=== PATIENT | male | born 1990 | race Two or more races ===

== ENCOUNTER 2017-06-23 02:47 | Emergency (ER) | payer BC ==
[2017-06-23 02:52] VITALS: RESP 18
[2017-06-23] MEDS ORDERED: FLUORESCEIN SODIUM 1 MG STRIP OP ONE (04:34)
[2017-06-23] MEDS ORDERED: PROPARACAINE 0.5% 15 ML OPHT DROP ONE (04:35)
--- NOTE | 2017-06-23 04:38 | EDPHY ---
H & P Stated Complaint: Left eye lac Time Seen by Provider: 06/23/17 03:21 HPI/ROS: HPI The patient presents with left eye injury which occurred a few hours prior to arrival. He accidentally walked into a wall and sustained a laceration to his left eyebrow. He also hit his eye in the process. He has increased tearing of his eye as well as diffuse redness with no changes in the vision. His eye is painful, it is a burning pain, worse with light and moderate in severity REVIEW OF SYSTEMS Constitutional: No fever, no chills. Eyes: No discharge. ENT: No sore throat. Cardiovascular: No chest pain, no palpitations. Respiratory: No cough, no shortness of breath. Gastrointestinal: No abdominal pain, no vomiting. Genitourinary: No hematuria. Musculoskeletal: No back pain. Skin: No rashes. Neurological: No headache. PMHx: Healthy PHYSICAL General Appearance: Alert, no distress Eyes: Pupils equal and round no pallor or injection EYE EXAM left Visual Acuity: noted from Nurse's notes. Pupils: Pupil is asymmetric with trabeculation is a present on the temporal aspect Skin: Periorbital ecchymoses are present no proptosis, no vesicles Conjunctivae: Diffusely injected, no discharge Cornea: exam with fluoroscein shows no uptake Anterior chamber:normal, no hyphema or hypopyon ENT, Mouth: Mucous membranes moist Respiratory: There are no retractions, lungs are clear to auscultation Cardiovascular: Regular rate and rhythm Gastrointestinal: Abdomen is soft and non-tender, no masses, bowel sounds normal Neurological: A&O, moves all extremities Skin: Left eyebrow at the nasal aspect has a v-shaped 2 cm laceration which is slightly gaping Musculoskeletal: Neck is supple non tender Extremities: symmetrical, full range of motion Psychiatric: Patient is oriented X 3, there is no agitation Source: Patient Exam Limitations: No limitations - Personal History Current Tetanus/Diphtheria Vaccine: Yes - Medical/Surgical History Hx Asthma: No Hx Chronic Respiratory Disease: No Hx Diabetes: No Hx Cardiac Disease: No Hx Renal Disease: No Hx Cirrhosis: No Hx Alcoholism: No Hx HIV/AIDS: No Hx Splenectomy or Spleen Trauma: No Other PMH: denies - Social History Smoking Status: Current every day smoker Constitutional: Initial Vital Signs Temperature (C) 36.9 C 06/23/17 02:49 Heart Rate 98 02/25/18 02:49 Respiratory Rate 18 06/23/17 02:49 Blood Pressure 123/82 H 06/23/17 02:49 O2 Sat (%) 92 06/23/17 02:49 O2 Delivery Mode Room Air Allergies/Adverse Reactions: No Known Allergies Allergy (Unverified 06/23/17 02:52) Home Medications: Medication Instructions Recorded Tobramycin/Dexamethasone [Tobradex 5 ml OP QID #1 drops.susp 06/23/17 Eye Drops] Medical Decision Making Procedures: LACERATION REPAIR Procedure: Laceration repair. Verbal consent was obtained from the patient. The v-shaped 2 cm laceration on the left eyebrow was anesthetized using lidocaine with epinephrine. The wound was scrubbed, draped and explored to its base with a gloved finger. There were no deep structures involved. No tendon injury was identified. . The wound was repaired with 3 simple interrupted sutures of 5-0 Prolene. The wound repair was complex. The procedure was performed by myself. Differential Diagnosis: 26-year-old male, healthy, presents after running into a wall, sustaining eyebrow laceration as well as injury to his eye. In the emergency department, eyebrow laceration was repaired. Slit-lamp examination was performed which did demonstrate synechiae without any fluorescein uptake. I suspect he is suffering from traumatic iritis. I doubt globe rupture given normal shape of globe and no fluorescein uptake. I have consulted with the hims manager manager monitoring Dr. Cavanaugh. He recommends that we start TobraDex. I have discussed this with the patient he will call for a follow-up appointment in 1 day. I have discussed returning to the emergency department for laceration repair of the eyebrow as well. - Data Points Medications Given: Discontinued Medications Fluorescein Sodium ([id number]) 1 mg OP EDNOW ONE Stop: 06/23/17 04:35 Last Admin: 06/23/17 05:41 Dose: Not Given Departure - Departure Disposition: Home, Routine, Self-Care Clinical Impression: Traumatic iritis Laceration of eyebrow, left Qualifiers: Encounter type: initial encounter Qualified Code(s): S01.112A - Laceration without foreign body of left eyelid and periocular area, initial encounter Condition: Good Instructions: Iritis (ED), Facial Laceration (ED) Additional Instructions: Please call Dr. Cavanaugh on Saturday morning to arrange for a follow-up appointment to be seen. Your stitches should be removed in 5 days. You can come to the emergency department for this. Referrals: Kaushik Cavanaugh MD [Medical Doctor] - As per Instructions Prescriptions: Tobramycin/Dexamethasone [Tobradex Eye Drops] 5 ml OP QID #1 drops.susp
[2017-06-23 06:24] VITALS: BP 121/71; PULSE 94; TEMP 97.9; O2SAT 96
== END 2017-06-23 06:22 | disposition home or self-care (01) ==
PROC: 0HQ1XZZ Repair Face Skin, External Approach (ICD-10-PCS; principal; 2017-06-23)
DX: S01.112A Laceration without foreign body of left eyelid and periocular area, initial encounter (principal); H20.9 Unspecified iridocyclitis; F17.200 Nicotine dependence, unspecified, uncomplicated; W22.8XXA Striking against or struck by other objects, initial encounter